=== PATIENT | female | born 1990 | race American Indian/Alaskan Native ===

== ENCOUNTER 2019-05-28 15:18 | Emergency (ER) | payer SELFPAY ==
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
[2019-05-28] MEDS ORDERED: NORCO 5/325 PO ONE (20:09)
[2019-05-28] MEDS ORDERED: BOOSTRIX IM ONE (20:09)
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
[2019-05-28 21:43] VITALS: BP 136/94
== END 2019-05-28 21:00 | disposition home or self-care (01) ==
LOC: ED 15:18
DX: S01.81XA Laceration without foreign body of other part of head, initial encounter (principal); F17.200 Nicotine dependence, unspecified, uncomplicated; F12.10 Cannabis abuse, uncomplicated; W22.8XXA Striking against or struck by other objects, initial encounter; Y93.89 Activity, other specified; Y92.89 Other specified places as the place of occurrence of the external cause; Y99.8 Other external cause status
CPT/HCPCS: 70450; 90715